=== PATIENT | male | born 1965 | race Caucasian/White ===

== ENCOUNTER 2022-09-30 03:52 | Emergency (ER) | payer BC ==
[2022-09-30 04:00] VITALS: TEMP 98.1; BMI 25.7
[2022-09-30] MEDS ORDERED: LISINOPRIL 5 MG TABLET PO ONE ×2 (04:09→05:49)
[2022-09-30] MEDS ORDERED: LISINOPRIL 5 MG TABLET ONE (04:11)
[2022-09-30] MEDS ORDERED: METOCLOPRAMIDE HCL INJECTION 10 MG/2 ML VIAL IVPB ONE (04:30)
[2022-09-30] MEDS ORDERED: ACETAMINOPHEN 1000 MG/100 ML BAG IVPB ONE (04:30)
[2022-09-30] MEDS ORDERED: ACETAMINOPHEN INJECTION 100 ML IVPB ONE (04:35)
[2022-09-30] MEDS ORDERED: METOCLOPRAMIDE HCL INJECTION 10 MG/2 ML VIAL ONE (04:35)
[2022-09-30 05:00] LABS: BASO % 0.7 % (0-2.0); HEMATOCRIT 41.7 % (35.4-49); HEMOGLOBIN 14.6 GM/dL (11.7-16.9); LYMPH % 27.6 % (8-40); MCH 29.7 pg (25.7-33.7); MEAN CELL VOLUME 84.9 fl (80-96); MEAN PLT VOLUME 7.8 fl (7.5-11.1); MONO % 8.8 % (3.8-10.2); NEUT % 59.9 % (42.8-82.8); PLATELET COUNT 250 10^3/uL (134-434); RBC 4.91 M/mm3 (4.00-5.60); RDW 13.1 % (11.9-15.9); WHITE BLOOD COUNT 6.8 K/mm3 (4.0-10.0)
[2022-09-30 05:26] LABS: POTASSIUM 4.2 mmol/L (3.5-5.1)
[2022-09-30 05:28] LABS: ALBUMIN 3.8 g/dl (3.4-5.0); MAGNESIUM 2.1 mg/dL (1.8-2.4)
[2022-09-30 05:31] LABS: CREATININE 1.2 mg/dL (0.55-1.3); PHOSPHOROUS 3.3 mg/dL (2.5-4.9)
[2022-09-30 05:32] LABS: BILIRUBIN,TOTAL 0.3 mg/dL (0.2-1); TOT PROT 7.7 g/dl (6.4-8.2)
[2022-09-30] MEDS ORDERED: ENALAPRILAT DIHYDRATE 1.25 MG/1 ML VIAL IVPB ONE (05:49)
[2022-09-30] MEDS ORDERED: ENALAPRILAT DIHYDRATE 2.5 MG/2 ML VIAL IVPB ONE (06:10)
[2022-09-30 06:33] VITALS: PULSE 79
[2022-09-30 07:51] VITALS: BP 198/105; RESP 18
== END 2022-09-30 08:43 | disposition home or self-care (01) ==
LOC: JER 03:52
PROC: 3E033GC Introduction of Other Therapeutic Substance into Peripheral Vein, Percutaneous Approach (ICD-10-PCS; principal; 2022-09-30)
DX: R04.0 Epistaxis (principal); R51.9 Headache, unspecified; I10 Essential (primary) hypertension
CPT/HCPCS: 36415; 70450-TC; 71045-TC-FY; 80053; 83735; 84100; 84484; 85025; 93005; 93010; 99285-25